=== PATIENT | male | born 1945 | race Caucasian/White ===

== ENCOUNTER 2020-07-15 08:31 | Outpatient (CLI) | payer MEDICARE, BC ==
[2020-07-15 14:26] LABS: SARS-CoV-2 PCR by NAA Not Detected (NotDetected)
== END 2020-07-15 08:32 | disposition home or self-care (01) ==
LOC: CSHLAB 08:31
PROVIDERS: ATTEND Nurse Practitioner Family
DX: Z20.822 Contact with and (suspected) exposure to COVID-19 (principal)
CPT/HCPCS: 87635; U0003; U0005

== ENCOUNTER 2021-02-17 13:00 | Outpatient (CLI) | payer MEDICARE, BC | END 2021-02-17 13:01 | disposition home or self-care (01) | LOC: CSHMRI 13:00 | PROVIDERS: ATTEND Psychiatry & Neurology Neurology | DX: I63.9 Cerebral infarction, unspecified (principal); M47.812 Spondylosis without myelopathy or radiculopathy, cervical region; J34.9 Unspecified disorder of nose and nasal sinuses; I67.89 Other cerebrovascular disease; Z98.1 Arthrodesis status; Z98.890 Other specified postprocedural states; M48.02 Spinal stenosis, cervical region; M40.202 Unspecified kyphosis, cervical region; M50.30 Other cervical disc degeneration, unspecified cervical region | CPT/HCPCS: 70551; 72141 ==

== ENCOUNTER 2021-03-11 10:37 | Outpatient (CLI) | payer MEDICARE, BC | END 2021-03-11 10:38 | disposition home or self-care (01) | LOC: CSHMRI 10:37 | PROVIDERS: ATTEND Specialist | DX: M54.16 Radiculopathy, lumbar region (principal); M47.816 Spondylosis without myelopathy or radiculopathy, lumbar region; M51.36 Other intervertebral disc degeneration, lumbar region; M48.061 Spinal stenosis, lumbar region without neurogenic claudication; M43.16 Spondylolisthesis, lumbar region; M71.38 Other bursal cyst, other site; Z98.890 Other specified postprocedural states; Z87.311 Personal history of (healed) other pathological fracture | CPT/HCPCS: 72158 ==

== ENCOUNTER 2021-04-08 13:07 | Outpatient (CLI) | payer MEDICARE, BC | END 2021-04-08 13:08 | disposition home or self-care (01) | LOC: CSHMRI 13:07 | PROVIDERS: ATTEND Family Medicine | DX: M54.16 Radiculopathy, lumbar region (principal); G89.29 Other chronic pain | CPT/HCPCS: 70544; 70549; 82565 ==

== ENCOUNTER 2021-08-17 07:56 | Outpatient (CLI) | payer MEDICARE, BC ==
[2021-08-16 14:31] VITALS: BMI 34.0
[2021-08-17] MEDS ORDERED: Iopamidol-M 200 41% 10 ML VIAL FS ONE (08:00)
[2021-08-17] MEDS ORDERED: Lidocaine 1% PF 5 ML VIAL ONE (08:41)
[2021-08-17] MEDS ORDERED: Sodium Bicarbonate 2.5 MEQ/5 ML VIAL ONE (08:41)
== END 2021-08-17 10:20 | disposition home or self-care (01) ==
LOC: CSHRAD 07:56
PROVIDERS: ATTEND Specialist
DX: M54.16 Radiculopathy, lumbar region (principal); Z98.890 Other specified postprocedural states; M48.061 Spinal stenosis, lumbar region without neurogenic claudication
CPT/HCPCS: 62304; 72132

== ENCOUNTER 2022-01-25 12:06 | Outpatient (CLI) | payer MEDICARE, BC | END 2022-01-25 12:07 | disposition home or self-care (01) | LOC: CSHWCC 12:06 | PROVIDERS: ATTEND Nurse Practitioner Family | DX: T81.89XD Other complications of procedures, not elsewhere classified, subsequent encounter (principal) | CPT/HCPCS: 97139; 97607; G0463; 99203 ==

== ENCOUNTER 2023-10-17 10:06 | Outpatient (CLI) | payer MEDICARE, BC | END 2023-10-17 10:07 | disposition home or self-care (01) | LOC: CSHWCC 10:06 | PROVIDERS: ATTEND Nurse Practitioner Family | DX: T84.7XXD Infection and inflammatory reaction due to other internal orthopedic prosthetic devices, implants and grafts, subsequent encounter (principal); E11.622 Type 2 diabetes mellitus with other skin ulcer; L98.429 Non-pressure chronic ulcer of back with unspecified severity; M86.48 Chronic osteomyelitis with draining sinus, other site; E27.3 Drug-induced adrenocortical insufficiency; I25.10 Atherosclerotic heart disease of native coronary artery without angina pectoris; N18.30 Chronic kidney disease, stage 3 unspecified | CPT/HCPCS: 11042; G0277 ==

== ENCOUNTER 2023-10-18 08:44 | Outpatient (CLI) | payer MEDICARE, BC | END 2023-10-18 08:45 | disposition home or self-care (01) | LOC: CSHWCC 08:44 | PROVIDERS: ATTEND Nurse Practitioner Family | DX: T84.7XXD Infection and inflammatory reaction due to other internal orthopedic prosthetic devices, implants and grafts, subsequent encounter (principal); M86.48 Chronic osteomyelitis with draining sinus, other site; L98.429 Non-pressure chronic ulcer of back with unspecified severity; N18.30 Chronic kidney disease, stage 3 unspecified; E27.3 Drug-induced adrenocortical insufficiency; I25.10 Atherosclerotic heart disease of native coronary artery without angina pectoris | CPT/HCPCS: 82962; G0277; 36416 ==

== ENCOUNTER 2023-10-19 08:03 | Outpatient (CLI) | payer MEDICARE, BC | END 2023-10-19 08:04 | disposition home or self-care (01) | LOC: CSHWCC 08:03 | PROVIDERS: ATTEND Nurse Practitioner Family | DX: L98.429 Non-pressure chronic ulcer of back with unspecified severity (principal); M86.48 Chronic osteomyelitis with draining sinus, other site; T84.7XXD Infection and inflammatory reaction due to other internal orthopedic prosthetic devices, implants and grafts, subsequent encounter; N18.30 Chronic kidney disease, stage 3 unspecified; I25.10 Atherosclerotic heart disease of native coronary artery without angina pectoris; E27.3 Drug-induced adrenocortical insufficiency | CPT/HCPCS: G0277 ==

== ENCOUNTER 2023-10-22 08:16 | Outpatient (CLI) | payer MEDICARE, BC | END 2023-10-22 08:17 | disposition home or self-care (01) | LOC: CSHWCC 08:16 | PROVIDERS: ATTEND Nurse Practitioner Family | DX: L98.429 Non-pressure chronic ulcer of back with unspecified severity (principal); M86.48 Chronic osteomyelitis with draining sinus, other site; N18.30 Chronic kidney disease, stage 3 unspecified; E27.3 Drug-induced adrenocortical insufficiency; I25.10 Atherosclerotic heart disease of native coronary artery without angina pectoris; T84.7XXD Infection and inflammatory reaction due to other internal orthopedic prosthetic devices, implants and grafts, subsequent encounter | CPT/HCPCS: G0277 ==

== ENCOUNTER 2023-11-14 10:16 | Outpatient (CLI) | payer MEDICARE, BC | END 2023-11-14 10:17 | disposition home or self-care (01) | LOC: CSHWCC 10:16 | PROVIDERS: ATTEND Nurse Practitioner Family | DX: T84.7XXD Infection and inflammatory reaction due to other internal orthopedic prosthetic devices, implants and grafts, subsequent encounter (principal); L98.429 Non-pressure chronic ulcer of back with unspecified severity; M86.48 Chronic osteomyelitis with draining sinus, other site; N18.30 Chronic kidney disease, stage 3 unspecified; E27.3 Drug-induced adrenocortical insufficiency; I25.10 Atherosclerotic heart disease of native coronary artery without angina pectoris | CPT/HCPCS: G0277 ==

== ENCOUNTER 2023-11-16 09:55 | Outpatient (CLI) | payer MEDICARE, BC | END 2023-11-16 09:56 | disposition home or self-care (01) | LOC: CSHWCC 09:55 | PROVIDERS: ATTEND Nurse Practitioner Family | DX: T84.7XXD Infection and inflammatory reaction due to other internal orthopedic prosthetic devices, implants and grafts, subsequent encounter (principal); L98.429 Non-pressure chronic ulcer of back with unspecified severity; M86.48 Chronic osteomyelitis with draining sinus, other site; N18.30 Chronic kidney disease, stage 3 unspecified; E27.3 Drug-induced adrenocortical insufficiency; I25.10 Atherosclerotic heart disease of native coronary artery without angina pectoris | CPT/HCPCS: G0277 ==

== ENCOUNTER 2023-11-19 08:29 | Outpatient (CLI) | payer MEDICARE, BC | END 2023-11-19 08:30 | disposition home or self-care (01) | LOC: CSHWCC 08:29 | PROVIDERS: ATTEND Nurse Practitioner Family | DX: L98.429 Non-pressure chronic ulcer of back with unspecified severity (principal); M86.48 Chronic osteomyelitis with draining sinus, other site; N18.30 Chronic kidney disease, stage 3 unspecified; E27.3 Drug-induced adrenocortical insufficiency; I25.10 Atherosclerotic heart disease of native coronary artery without angina pectoris; T84.7XXD Infection and inflammatory reaction due to other internal orthopedic prosthetic devices, implants and grafts, subsequent encounter | CPT/HCPCS: G0277 ==

== ENCOUNTER 2023-11-20 08:17 | Outpatient (CLI) | payer MEDICARE, BC | END 2023-11-20 08:18 | disposition home or self-care (01) | LOC: CSHWCC 08:17 | PROVIDERS: ATTEND Nurse Practitioner Family | DX: T84.7XXD Infection and inflammatory reaction due to other internal orthopedic prosthetic devices, implants and grafts, subsequent encounter (principal); L98.429 Non-pressure chronic ulcer of back with unspecified severity; M86.48 Chronic osteomyelitis with draining sinus, other site; N18.30 Chronic kidney disease, stage 3 unspecified; E27.3 Drug-induced adrenocortical insufficiency; I25.10 Atherosclerotic heart disease of native coronary artery without angina pectoris | CPT/HCPCS: G0277 ==

== ENCOUNTER 2023-11-23 14:08 | Outpatient (CLI) | payer MEDICARE, BC | END 2023-11-23 14:09 | disposition home or self-care (01) | LOC: CSHWCC 14:08 | PROVIDERS: ATTEND Nurse Practitioner Family | DX: T84.7XXD Infection and inflammatory reaction due to other internal orthopedic prosthetic devices, implants and grafts, subsequent encounter (principal); L98.429 Non-pressure chronic ulcer of back with unspecified severity; M86.48 Chronic osteomyelitis with draining sinus, other site; N18.30 Chronic kidney disease, stage 3 unspecified; E27.3 Drug-induced adrenocortical insufficiency; I25.10 Atherosclerotic heart disease of native coronary artery without angina pectoris | CPT/HCPCS: G0277 ==

== ENCOUNTER 2023-11-26 08:28 | Outpatient (CLI) | payer MEDICARE, BC | END 2023-11-26 08:29 | disposition home or self-care (01) | LOC: CSHWCC 08:28 | PROVIDERS: ATTEND Nurse Practitioner Family | DX: T84.7XXD Infection and inflammatory reaction due to other internal orthopedic prosthetic devices, implants and grafts, subsequent encounter (principal); L98.429 Non-pressure chronic ulcer of back with unspecified severity; M86.48 Chronic osteomyelitis with draining sinus, other site; N18.30 Chronic kidney disease, stage 3 unspecified; E27.3 Drug-induced adrenocortical insufficiency; I25.10 Atherosclerotic heart disease of native coronary artery without angina pectoris | CPT/HCPCS: G0277 ==

== ENCOUNTER 2023-11-28 14:28 | Outpatient (CLI) | payer MEDICARE, BC | END 2023-11-28 14:29 | disposition home or self-care (01) | LOC: CSHMRI 14:28 | PROVIDERS: ATTEND Surgery | DX: M47.816 Spondylosis without myelopathy or radiculopathy, lumbar region (principal); M54.50 Low back pain, unspecified; Z98.890 Other specified postprocedural states; M48.061 Spinal stenosis, lumbar region without neurogenic claudication | CPT/HCPCS: 72148 ==

== ENCOUNTER 2024-02-08 10:37 | Outpatient (CLI) | payer MEDICARE, BC | END 2024-02-08 10:38 | disposition home or self-care (01) | LOC: CSHWCC 10:37 | PROVIDERS: ATTEND Nurse Practitioner Family | DX: L98.429 Non-pressure chronic ulcer of back with unspecified severity (principal); M86.48 Chronic osteomyelitis with draining sinus, other site; T84.7XXD Infection and inflammatory reaction due to other internal orthopedic prosthetic devices, implants and grafts, subsequent encounter; N18.30 Chronic kidney disease, stage 3 unspecified; E27.3 Drug-induced adrenocortical insufficiency; I25.10 Atherosclerotic heart disease of native coronary artery without angina pectoris | CPT/HCPCS: 11042 ==

== ENCOUNTER 2024-02-15 10:35 | Outpatient (CLI) | payer MEDICARE, BC | END 2024-02-15 10:36 | disposition home or self-care (01) | LOC: CSHWCC 10:35 | PROVIDERS: ATTEND Nurse Practitioner Family | DX: L98.429 Non-pressure chronic ulcer of back with unspecified severity (principal); I25.10 Atherosclerotic heart disease of native coronary artery without angina pectoris; E27.3 Drug-induced adrenocortical insufficiency; N18.30 Chronic kidney disease, stage 3 unspecified; T84.7XXA Infection and inflammatory reaction due to other internal orthopedic prosthetic devices, implants and grafts, initial encounter; M86.48 Chronic osteomyelitis with draining sinus, other site | CPT/HCPCS: 11042; G0463; 99212 ==

== ENCOUNTER 2024-02-29 10:31 | Outpatient (CLI) | payer MEDICARE, BC | END 2024-02-29 10:32 | disposition home or self-care (01) | LOC: CSHWCC 10:31 | PROVIDERS: ATTEND Nurse Practitioner Family | DX: T84.7XXD Infection and inflammatory reaction due to other internal orthopedic prosthetic devices, implants and grafts, subsequent encounter (principal); L98.429 Non-pressure chronic ulcer of back with unspecified severity; M86.48 Chronic osteomyelitis with draining sinus, other site; N18.30 Chronic kidney disease, stage 3 unspecified; E27.3 Drug-induced adrenocortical insufficiency; I25.10 Atherosclerotic heart disease of native coronary artery without angina pectoris | CPT/HCPCS: 97597 ==

== ENCOUNTER 2024-03-03 09:03 | Outpatient (CLI) | payer MEDICARE, BC | END 2024-03-03 09:04 | disposition home or self-care (01) | LOC: CSHWCC 09:03 | PROVIDERS: ATTEND Nurse Practitioner Family | DX: T84.7XXD Infection and inflammatory reaction due to other internal orthopedic prosthetic devices, implants and grafts, subsequent encounter (principal); L98.429 Non-pressure chronic ulcer of back with unspecified severity; M86.48 Chronic osteomyelitis with draining sinus, other site; N18.30 Chronic kidney disease, stage 3 unspecified; E27.3 Drug-induced adrenocortical insufficiency; I25.10 Atherosclerotic heart disease of native coronary artery without angina pectoris | CPT/HCPCS: G0277 ==

== ENCOUNTER 2024-03-04 10:12 | Outpatient (CLI) | payer MEDICARE, BC | END 2024-03-04 10:13 | disposition home or self-care (01) | LOC: CSHWCC 10:12 | PROVIDERS: ATTEND Nurse Practitioner Family | DX: T84.7XXD Infection and inflammatory reaction due to other internal orthopedic prosthetic devices, implants and grafts, subsequent encounter (principal); L98.429 Non-pressure chronic ulcer of back with unspecified severity; M86.48 Chronic osteomyelitis with draining sinus, other site; N18.30 Chronic kidney disease, stage 3 unspecified; E27.3 Drug-induced adrenocortical insufficiency; I25.10 Atherosclerotic heart disease of native coronary artery without angina pectoris | CPT/HCPCS: G0277 ==

== ENCOUNTER 2024-03-05 10:17 | Outpatient (CLI) | payer MEDICARE, BC | END 2024-03-05 10:18 | disposition home or self-care (01) | LOC: CSHWCC 10:17 | PROVIDERS: ATTEND Nurse Practitioner Family | DX: T84.7XXD Infection and inflammatory reaction due to other internal orthopedic prosthetic devices, implants and grafts, subsequent encounter (principal); L98.429 Non-pressure chronic ulcer of back with unspecified severity; N18.30 Chronic kidney disease, stage 3 unspecified; I25.10 Atherosclerotic heart disease of native coronary artery without angina pectoris; M86.48 Chronic osteomyelitis with draining sinus, other site; E27.3 Drug-induced adrenocortical insufficiency ==

== ENCOUNTER 2024-03-06 09:24 | Outpatient (CLI) | payer MEDICARE, BC | END 2024-03-06 09:25 | disposition home or self-care (01) | LOC: CSHWCC 09:24 | PROVIDERS: ATTEND Nurse Practitioner Family | DX: T84.7XXD Infection and inflammatory reaction due to other internal orthopedic prosthetic devices, implants and grafts, subsequent encounter (principal); L98.429 Non-pressure chronic ulcer of back with unspecified severity; M86.48 Chronic osteomyelitis with draining sinus, other site; N18.30 Chronic kidney disease, stage 3 unspecified; E27.3 Drug-induced adrenocortical insufficiency; I25.10 Atherosclerotic heart disease of native coronary artery without angina pectoris ==

== ENCOUNTER 2024-03-10 08:22 | Outpatient (CLI) | payer MEDICARE, BC | END 2024-03-10 08:23 | disposition home or self-care (01) | LOC: CSHWCC 08:22 | PROVIDERS: ATTEND Nurse Practitioner Family | DX: T84.7XXD Infection and inflammatory reaction due to other internal orthopedic prosthetic devices, implants and grafts, subsequent encounter (principal); L98.429 Non-pressure chronic ulcer of back with unspecified severity; M86.48 Chronic osteomyelitis with draining sinus, other site; N18.30 Chronic kidney disease, stage 3 unspecified; E27.3 Drug-induced adrenocortical insufficiency; I25.10 Atherosclerotic heart disease of native coronary artery without angina pectoris | CPT/HCPCS: G0277 ==

== ENCOUNTER 2024-03-12 08:39 | Outpatient (CLI) | payer MEDICARE, BC | END 2024-03-12 08:40 | disposition home or self-care (01) | LOC: CSHWCC 08:39 | PROVIDERS: ATTEND Nurse Practitioner Family | DX: T84.7XXD Infection and inflammatory reaction due to other internal orthopedic prosthetic devices, implants and grafts, subsequent encounter (principal); L98.429 Non-pressure chronic ulcer of back with unspecified severity; M86.48 Chronic osteomyelitis with draining sinus, other site; N18.30 Chronic kidney disease, stage 3 unspecified; E27.3 Drug-induced adrenocortical insufficiency; I25.10 Atherosclerotic heart disease of native coronary artery without angina pectoris | CPT/HCPCS: G0277 ==

== ENCOUNTER 2024-03-13 09:19 | Outpatient (CLI) | payer MEDICARE, BC | END 2024-03-13 09:20 | disposition home or self-care (01) | LOC: CSHWCC 09:19 | PROVIDERS: ATTEND Nurse Practitioner Family | DX: T84.7XXD Infection and inflammatory reaction due to other internal orthopedic prosthetic devices, implants and grafts, subsequent encounter (principal); L98.429 Non-pressure chronic ulcer of back with unspecified severity; M86.48 Chronic osteomyelitis with draining sinus, other site; N18.30 Chronic kidney disease, stage 3 unspecified; E27.3 Drug-induced adrenocortical insufficiency; I25.10 Atherosclerotic heart disease of native coronary artery without angina pectoris | CPT/HCPCS: G0277 ==